=== PATIENT | female | born 1985 | race Caucasian/White ===

== ENCOUNTER 2016-12-27 11:36 | Emergency (ER) | payer MEDICAID ==
[~2016-12-27] VITALS: Ht 160 cm; Wt 103.0 kg
[2016-12-27] MEDS ORDERED: HYDROmorphone 1 MG/ML, 1ML ONE (12:18)
[2016-12-27] MEDS ORDERED: ONDANSETRON 2MG/ML, 2ML ONE (12:18)
[2016-12-27] MEDS ORDERED: ONDANSETRON 2MG/ML, 2ML IVPush ONE (12:30)
[2016-12-27] MEDS ORDERED: HYDROmorphone 1 MG/ML, 1ML IVPush PRN (12:30)
[2016-12-27] MEDS ORDERED: SODIUM CHLORIDE 0.9% 1,000ML IVBOLUS ONE (12:30)
[2016-12-27] MEDS ORDERED: SODIUM CHLORIDE FLUSH 10ML SYR IVF ONE (12:30)
[2016-12-27 13:10] LABS: ASPARTATE AMINO TRANSFERASE 10 U/L (15-37); BLOOD UREA NITROGEN 14 mg/dL (7-18)
[2016-12-27] MEDS ORDERED: DEXAMETHASONE 4 MG/ML, 1ML IV ONE (13:30)
[2016-12-27] MEDS ORDERED: DEXAMETHASONE 4 MG TABLET ONE (13:35)
[2016-12-27] MEDS ORDERED: DEXAMETHASONE 4 MG/ML, 1ML ONE (13:38)
[2016-12-27 13:56] VITALS: BP 124/79
== END 2016-12-27 14:02 | disposition home or self-care (01) ==
LOC: ED 12:04
DX: R10.31 Right lower quadrant pain (principal); M06.9 Rheumatoid arthritis, unspecified
CPT/HCPCS: 36415; 76830; 80053; 81003; 84703; 85025; 96361; 96374; 96375; 99285; J1100; J1170; J2405; J7030